=== PATIENT | female | born 1990 ===

== ENCOUNTER 2019-02-21 08:09 | Emergency (ER) | payer OTHER ==
[2019-02-21 08:15] VITALS: O2SAT 100
[2019-02-21 08:16] VITALS: BMI 28.5
[2019-02-21] MEDS ORDERED: Sodium Chloride 0.9% 1,000 ML IV SCH (09:30)
--- NOTE | 2019-02-21 09:33 | ED PDOC ---
HPI: Abdomen Time Seen by Provider: 02/21/19 08:16 Chief Complaint (Nursing): Abdominal Pain History Per: Patient History/Exam Limitations: no limitations Additional Complaint(s): 28 y/o F presents to ED c/o RLQ abdominal pain that began at 06:30 today. pain is sharp and pressure, 9/10 intensity, non-radiating, constant and associated with nausea. No vomiting episodes. No ill contacts. No recent travel. Pt denies fever, chills, cehst pain, SOB, diarrhea, blood in stools. --Menses are regular,with normal bleeding. LMP 01/30/19. PMD: None NKDA Meds: none PMHx: denied PSHx: b/l ovarian cystectomy FHx: NC SHx: denies tobacco, alcohol or rec drugs. Past Medical History Vital Signs: Last Vital Signs Temp 97.6 F 02/21/19 08:14 Pulse 75 02/21/19 08:14 Resp 16 02/21/19 08:14 BP 106/67 02/21/19 08:14 Pulse Ox 100 02/21/19 08:14 Primary Care Provider: DoctorMaxine - Family History Family History: States: Unknown Family Hx - Immunization History Hx Tetanus Toxoid Vaccination: No Hx Influenza Vaccination: No Hx Pneumococcal Vaccination: No - Home Medications Home Medications: Ambulatory Orders Medication Instructions Recorded Acetaminophen with Codeine 1 tab PO .Q4-6H #30 tab 07/02/16 [Tylenol with Codeine No. 3 300 mg-30 mg] Amoxicillin/Clavulanate [Augmentin 1 tab PO BID #14 tab 07/02/16 875 MG-125 MG] Ibuprofen [Motrin Tab] 400 mg PO Q8 #30 tab 07/02/16 Ondansetron [Zofran Odt] 4 mg PO .Q4-6 H PRN #20 odt 07/02/16 - Allergies Allergies/Adverse Reactions: Allergies Allergy/AdvReac Type Severity Reaction Status Date / Time No Known Allergies Allergy Unverified 07/02/16 04:33 Review of Systems Constitutional: Negative for: Fever, Chills, Sweats ENT: Negative for: Ear Pain Cardiovascular: Negative for: Chest Pain, Palpitations Respiratory: Negative for: Cough, Shortness of Breath, Hemoptysis Gastrointestinal: Positive for: Nausea, Abdominal Pain. Negative for: Vomiting, Diarrhea, Hematochezia Genitourinary Female: Negative for: Dysuria, Frequency, Hematuria Musculoskeletal: Negative for: Neck Pain Skin: Negative for: Rash Neurological: Negative for: Weakness, Numbness Physical Exam - Physical Exam Appears: Positive for: No Acute Distress, Uncomfortable Head Exam: Positive for: ATRAUMATIC, NORMAL INSPECTION Eye Exam: Positive for: Normal appearance, EOMI ENT: Negative for: Nasal Congestion, Pharyngeal Erythema, Tonsillar Exudate Neck: Positive for: Normal, Painless ROM, Supple Cardiovascular/Chest: Positive for: Regular Rate, Rhythm Respiratory: Positive for: Normal Breath Sounds Gastrointestinal/Abdominal: Positive for: Soft, Tenderness (RLQ), Other (Rovsing positive. Positive obturator sign. ). Negative for: Bowel Sounds, Mass, Distended Extremity: Positive for: Normal ROM. Negative for: Tenderness, Pedal Edema - Laboratory Results Result Diagrams: 02/21/19 09:30 02/21/19 09:30 - ECG O2 Sat by Pulse Oximetry: 100 Medical Decision Making Medical Decision Makin:25 --Suspicion for appendicitis --CBC, CMP, lipase, coags, type and screen --CT Abdomen/pelvis ordered --IV Morphine and Zofran ordered. Disposition - Clinical Impression Clinical Impression: Abdominal pain - Patient ED Disposition Is Patient to be Admitted: Transfer of Care - Disposition Disposition: Transfer of Care Disposition Time: 13:08 Condition: GOOD Forms: [employer] (German)
[2019-02-21] MEDS ORDERED: Iohexol 240 (50 ml) PO ONE (09:46)
[2019-02-21] MEDS ORDERED: Iohexol 240 (50 ml) ONE (09:57)
[2019-02-21 10:05] LABS: SQUAMOUS EPITHIAL 14 /hpf (0-5); URINE BACTERIA RARE (<OCC); URINE BILIRUBIN NEGATIVE (NEGATIVE); URINE BLOOD NEGATIVE (NEGATIVE); URINE CLARITY CLOUDY (Clear); URINE COLOR YELLOW (YELLOW); URINE GLUCOSE (UA) NEG (NEGATIVE); URINE LEUKOCYTE ESTERASE MOD Leu/uL (Negative); URINE PROTEIN NEGATIVE (NEGATIVE); URINE UROBILINOGEN 0.2-1.0 mg/dL (0.2-1.0)
[2019-02-21 10:26] LABS: INR 0.9; PROTHROMBIN TIME 10.4 Seconds (9.8-13.1)
[2019-02-21 10:32] LABS: ALB/GLOB RATIO 1.4 (1.0-2.1); ALBUMIN 4.3 g/dL (3.5-5.0); BASO % 0.6 % (0.0-2.0); BLOOD UREA NITROGEN 12 mg/dl (7-17); CALCIUM 8.8 mg/dL (8.4-10.2); EOS # 0.1 K/uL (0.0-0.7); EOS % 2.2 % (0.0-4.0); GFR NON-AFRICAN AMERICAN > 60; HEMOGLOBIN 12.8 g/dL (12.0-16.0); LIPASE 89 U/L (23-300); LYMPH # 1.9 K/uL (1.0-4.3); LYMPH % 31.7 % (20.0-40.0); MEAN CELL VOLUME 92.4 fl (81.0-99.0); MEAN CORPUSCULAR HEMOGLOBIN 31.5 pg (27.0-31.0); MEAN CORPUSCULAR HGB CONC 34.1 g/dL (33.0-37.0); MEAN PLATELET VOLUME 10.4 fl (7.2-11.7); MONO # 0.3 K/uL (0.0-0.8); MONO % 4.8 % (0.0-10.0); NEUT # 3.7 K/uL (1.8-7.0); NEUT % 60.7 % (50.0-75.0); NRBC % 0.1 % (0.0-0.0); RBC 4.04 Mil/uL (3.80-5.20); RED CELL DISTRIBUTION WIDTH 12.7 % (11.5-14.5); WHITE BLOOD COUNT 6.1 K/uL (4.8-10.8)
[2019-02-21 10:35] LABS: ALT/SGPT 28 U/L (9-52); AST/SGOT 29 U/L (14-36)
[2019-02-21] MEDS ORDERED: Iohexol 300 100 ML IJ ONE (12:11)
[2019-02-21] MEDS ORDERED: Sodium Chloride 0.9% 50 ML IV ONE (12:11)
--- NOTE | 2019-02-21 13:55 | CT ---
Date of service: 02/21/2019 PROCEDURE: CT Abdomen and Pelvis with contrast HISTORY: RLQ pain. R/O appendicitis COMPARISON: None. TECHNIQUE: Following oral and intravenous contrast administration, a CT examination of the abdomen and pelvis was performed from the domes of the diaphragms to the symphysis pubis with reformatted datasets provided not only axial but also sagittal and coronal series. Contrast dose: Omnipaque 300, 100 cc Radiation dose: Total exam DLP = 409.09 mGy-cm. This CT exam was performed using one or more of the following dose reduction techniques: Automated exposure control, adjustment of the mA and/or kV according to patient size, and/or use of iterative reconstruction technique. FINDINGS: LOWER THORAX: Unremarkable. LIVER: Diminished attenuation is appreciate diffusely throughout the liver without hepatomegaly mass or intrahepatic biliary dilatation. GALLBLADDER AND BILE DUCTS: The gallbladder is distended but otherwise appears unremarkable. No significant dilatation of the common bile duct appreciated. PANCREAS: Unremarkable. No gross lesion or ductal dilatation. SPLEEN: Unremarkable. ADRENALS: Unremarkable. No mass. KIDNEYS AND URETERS: Unremarkable. No hydronephrosis. No solid mass. VASCULATURE: Unremarkable. No aortic aneurysm. No aortic atherosclerotic calcification or mural plaque present. BOWEL: Unremarkable. No obstruction. No gross mural thickening. APPENDIX: Normal appendix. No CT evidence of appendicitis. PERITONEUM: Unremarkable. No free fluid. No free air. LYMPH NODES: Unremarkable. No enlarged lymph nodes. BLADDER: Unremarkable. REPRODUCTIVE: Unremarkable. BONES: Bilateral L5 spondylolysis results in grade 1 spondylolisthesis with L5 slightly anterior to S1. OTHER FINDINGS: None. IMPRESSION: 1. Hepatic steatosis. Distended but otherwise unremarkable appearing gallbladder. 2. Normal appendix. 3. Grade 1 spondylolisthesis L5-S1 due to bilateral L5 spondylolysis.
--- NOTE | 2019-02-21 16:12 | US ---
Date of service: 02/21/2019 HISTORY: Bilateral lower quadrant pain. LMP 01/30/2019. IUD in place 1 year by history. COMPARISON: February 21, 2019. CT abdomen and pelvis. TECHNIQUE: FINDINGS: UTERUS: Measures cm. Normal in size and appearance. No fibroid or other mass lesion seen. ENDOMETRIUM: Measures 6.1 mm in diameter. Intrauterine contraceptive device (IUD) identified CERVIX: No cervical abnormality identified. RIGHT OVARY: Measures 1.7 x 2.6 x 2.7 cm. No solid mass. Normal flow. Multiple subcentimeter follicles. LEFT OVARY: Measures 1.1 x 2.3 x 3.1 cm. No solid mass. Normal flow. FREE FLUID: No significant free fluid noted. OTHER FINDINGS: None. IMPRESSION: Unremarkable pelvic ultrasound. Intrauterine contraceptive device (IUD) identified Limitations of the current examination: Absence of transvaginal component ordered, the patient deferred.
[2019-02-21 18:46] VITALS: TEMP 98.1
[2019-02-21 18:50] VITALS: BP 123/70; PULSE 72; RESP 18
== END 2019-02-21 16:30 | disposition home or self-care (01) ==
LOC: H.ER 08:09
DX: R10.9 Unspecified abdominal pain (principal)
CPT/HCPCS: 74177; 76856; 80053; 81003; 81025; 83690; 85025; 85610; 85730; 87040; 96374; 96375; 99283; J2270; J2405; J7030; Q9966; Q9967